=== PATIENT | male | born 1945 | race Caucasian/White ===

== ENCOUNTER 2017-12-15 09:05 | Day surgery (SDC) | payer OTHER, BC ==
[2017-12-14 17:04] VITALS: BMI 52.4
[2017-12-15] MEDS ORDERED: ceFAZolin SODIUM 1 GM VIAL ONE (09:55)
[2017-12-15] MEDS ORDERED: BACITRACIN 15 GM TUBE TOPICAL OINTMENT ONE (10:25)
[2017-12-15] MEDS ORDERED: LIDOCAINE 1%/EPI 1:100000 (20 ML MULTI DOSE VIAL) ONE (10:25)
[2017-12-15] MEDS ORDERED: MINERAL OIL 25 ML OIL ONE (10:26)
--- NOTE | 2017-12-15 11:09 | PROC ---
Procedure Note Procedure: Anesthesia When patient brought to OR and transfer to OR bed in supine position O2 Saturation dropped to 77%. Bp 156/[id number] Robertson in the room. Case discussed with DR. Robertson. Due the fact that pt is unstable and he is C PAP depend and the surgical site is where the C pap mask should be on. Case is canceled. Pt was transferred to PACU for stabilization before transfer to [facility]. No medication was given Mateusz Mejia MD
--- NOTE | 2017-12-15 11:12 | PN ---
Progress Note (short form) - Note Progress Note: Patient brought to OR in attempt to do nasal reconstructive surgery with straight local anesthesia. With no medication and him lying in even a partially upright position, he would maintain O2 saturations in the 70s. This improved with oxygen. It was clear just how dependent on his CPAP he was and the concern presented that if the surgery were done, it might make the CPAP less effective. The decision was made to abort the procedure before the patient received any medication or treatment. He will continue home dressing changes until the wound edges are healed and then be fitted with a prosthesis. If a whole face CPAP machine can be used, then a second attempt at surgical reconstruction can be made.
[2017-12-15 12:04] VITALS: TEMP 98
[2017-12-15 12:16] VITALS: BP 108/70; PULSE 75
== END 2017-12-15 12:20 | disposition home or self-care (01) ==
LOC: JASU-SURG 09:05
PROVIDERS: ATTEND Plastic Surgery
PROC: 0HQ1XZZ Repair Face Skin, External Approach (ICD-10-PCS; principal; 2017-12-15 10:30)
DX: Z53.8 Procedure and treatment not carried out for other reasons (principal)
CPT/HCPCS: 94760